=== PATIENT | male | born 1955 | race Caucasian/White ===

== ENCOUNTER 2017-10-10 08:13 | Emergency (ER) | payer MEDICAID ==
[~2017-10-10] VITALS: Ht 180.3 cm; Wt 82.5 kg
[2017-10-10 08:17] VITALS: BP 139/102
[2017-10-10] MEDS ORDERED: CARB15DR91 EACH EAR (09:15)
== END 2017-10-10 09:25 | disposition home or self-care (01) ==
LOC: ER 08:14
DX: H61.22 Impacted cerumen, left ear (principal); G43.909 Migraine, unspecified, not intractable, without status migrainosus; F11.10 Opioid abuse, uncomplicated
CPT/HCPCS: 69210; 99284

== ENCOUNTER 2019-05-26 16:14 | Emergency (ER) | payer MEDICAID ==
[~2019-05-26] VITALS: Ht 180.3 cm; Wt 75.0 kg
[~2019-05-26 16:14] MED LIST: CARB15DR91 EACH EAR
[2019-05-26] MEDS ORDERED: aspirin 81mg tab.chew PO ONE (16:55)
[2019-05-26 17:36] LABS: BASOPHILS # (AUTO) 0.1 X10'3 (0-0.2); BASOPHILS % (AUTO) 1.1 % (0-1); EOSINOPHILS # (AUTO) 0.1 X10'3 (0-0.9); EOSINOPHILS % (AUTO) 1.2 % (0-6); HEMATOCRIT 41.2 % (42.0-52.0); HEMOGLOBIN 14.2 g/dl (14.0-17.9); LYMPHOCYTES # (AUTO) 2.1 X10'3 (1.1-4.8); MEAN CORPUSCULAR HGB CONC 34.5 g/dL (33.0-36.5); MEAN CORPUSCULAR VOLUME 95.5 FL (78-98); MEAN PLATELET VOLUME 8.5 FL (7.4-10.4); MONOCYTES # (AUTO) 0.7 X10'3 (0-0.9); MONOCYTES % (AUTO) 12.1 % (2-12); NEUTROPHILS # (AUTO) 2.9 X10'3 (1.8-7.7); NEUTROPHILS % (AUTO) 49.6 % (42-75); PLATELET COUNT 147 X10'3 (140-440); RED BLOOD COUNT 4.32 X10'6 (4.70-6.10); RED CELL DISTRIBUTION WIDTH 14.2 % (11.5-14.5); WHITE BLOOD COUNT 5.8 X10'3 (4.5-11.0)
[2019-05-26 17:48] LABS: PARTIAL THROMBOPLASTIN TIME 27 SECONDS (22-32)
[2019-05-26 17:57] LABS: ALANINE AMINOTRANSFERASE 180 U/L (12-78); ALBUMIN 3.6 G/DL (3.4-5.0); ALBUMIN/GLOBULIN RATIO 0.9 (1.1-1.5); ALKALINE PHOSPHATASE 114 IU/L (46-116); ANION GAP 11 (8-16); ASPARTATE AMINO TRANSFERASE 191 U/L (10-37); BILIRUBIN,TOTAL 1.1 MG/DL (0.1-1.0); BLOOD UREA NITROGEN 9 MG/DL (7-18); BUN/CREATININE RATIO 11.8 (5.4-32.0); CALCIUM 8.7 MG/DL (8.5-10.1); CHLORIDE 107 MMOL/L (99-107); CREATININE 0.76 MG/DL (0.60-1.10); GLUCOSE 103 MG/DL (70-104); POTASSIUM 3.9 MMOL/L (3.5-5.1); SODIUM 141 MMOL/L (135-145); TOTAL CARBON DIOXIDE 22.7 MMOL/L (24-32); TOTAL PROTEIN 7.8 G/DL (6.4-8.2); eGFR > 90 ML/MIN
[2019-05-26 17:58] LABS: LACTIC SEPSIS 1.2 MMOL/L (0.4-2.0)
[2019-05-26 18:01] LABS: CLARITY,URINE CLEAR (Clear); COLOR,URINE YELLOW (Yellow); GLUCOSE, URINE NEGATIVE (Neg); KETONES,URINE 15 mg/dl (Neg); LEUKOCYTE ESTERASE ,URINE TRACE (Neg); NITRITES, URINE NEGATIVE (Neg); OCCULT BLOOD,URINE NEGATIVE (Neg); PH,URINE 5.5 (4.8-8.0); PROTEIN,URINE NEGATIVE (Neg); UROBILINOGEN,URINE 0.2 E.U/dL (0.2-1.0)
[2019-05-26 18:02] LABS: AMMONIA < 10 UMOL/L (11-32)
[2019-05-26 18:02] LABS: UA COLLECTION TYPE CLN CATCH MIDSTREAM
[2019-05-26 18:06] LABS: MUCUS STRANDS MODERATE /LPF (Neg); SQUAMOUS EPITHELIAL CELL,UR MODERATE /LPF (FEW)
[2019-05-26 18:07] LABS: BACTERIA,URINE FEW /HPF (Neg); RBC,URINE 0-2 /HPF (0-2); WBC CLUMPS,URINE FEW /HPF (NEGATIVE)
[2019-05-26 18:11] LABS: MAGNESIUM 1.8 MG/DL (1.5-2.4)
[2019-05-26 20:57] VITALS: BP 118/87
== END 2019-05-26 20:58 | disposition home or self-care (01) ==
LOC: ER 16:14
DX: K70.30 Alcoholic cirrhosis of liver without ascites (principal); F11.90 Opioid use, unspecified, uncomplicated; Z98.890 Other specified postprocedural states; Z79.899 Other long term (current) drug therapy
CPT/HCPCS: 36415; 71045; 74176; 80053; 81001; 82140; 83605; 83735; 83880; 84439; 84443; 84484; 85025; 85610; 85730; 87088; 93005; 99284

== ENCOUNTER 2021-03-25 13:24 | Emergency (ER) | payer MEDICAID ==
[~2021-03-25] VITALS: Ht 177.8 cm; Wt 77.3 kg
[2021-03-25 15:53] LABS: BASOPHILS # (AUTO) 0.1 X10'3 (0-0.2); BASOPHILS % (AUTO) 1.5 % (0-1); EOSINOPHILS # (AUTO) 0.1 X10'3 (0-0.9); EOSINOPHILS % (AUTO) 1.1 % (0-6); HEMATOCRIT 44.5 % (42.0-52.0); HEMOGLOBIN 15.3 g/dl (14.0-17.9); LYMPHOCYTES # (AUTO) 2.7 X10'3 (1.1-4.8); LYMPHOCYTES % (AUTO) 46.8 % (21-51); MEAN CORPUSCULAR HEMOGLOBIN 32.3 PG (27.0-31.0); MEAN CORPUSCULAR HGB CONC 34.3 g/dL (33.0-36.5); MEAN CORPUSCULAR VOLUME 94.2 FL (78-98); MEAN PLATELET VOLUME 8.1 FL (7.4-10.4); MONOCYTES # (AUTO) 0.4 X10'3 (0-0.9); MONOCYTES % (AUTO) 7.7 % (2-12); NEUTROPHILS # (AUTO) 2.4 X10'3 (1.8-7.7); NEUTROPHILS % (AUTO) 42.9 % (42-75); PLATELET COUNT 205 X10'3 (140-440); RED BLOOD COUNT 4.72 X10'6 (4.70-6.10); RED CELL DISTRIBUTION WIDTH 13.6 % (11.5-14.5); WHITE BLOOD COUNT 5.7 X10'3 (4.5-11.0)
[2021-03-25 16:15] LABS: ALANINE AMINOTRANSFERASE 37 U/L (12-78); ALBUMIN 3.8 G/DL (3.4-5.0); ALBUMIN/GLOBULIN RATIO 1.1 (1.1-1.5); ALKALINE PHOSPHATASE 90 IU/L (46-116); ANION GAP 18 (8-16); ASPARTATE AMINO TRANSFERASE 46 U/L (10-37); BILIRUBIN,TOTAL 0.6 MG/DL (0.1-1.0); BLOOD UREA NITROGEN 6 MG/DL (7-18); BUN/CREATININE RATIO 6.9 (5.4-32.0); CALCIUM 8.6 MG/DL (8.5-10.1); CHLORIDE 105 MMOL/L (99-107); CREATININE 0.87 MG/DL (0.60-1.10); GLUCOSE 113 MG/DL (70-104); LIPASE 564 U/L (73-393); POTASSIUM 3.6 MMOL/L (3.5-5.1); SODIUM 142 MMOL/L (135-145); TOTAL CARBON DIOXIDE 19.1 MMOL/L (24-32); TOTAL PROTEIN 7.3 G/DL (6.4-8.2); eGFR 89 ML/MIN
[2021-03-25] MEDS ORDERED: LORazepam 1 MG tablet PO ONE (17:20)
[2021-03-25 17:43] LABS: ETHANOL 0.188 GM/DL (0.0-0.010)
[2021-03-25 19:28] LABS: URINE AMPHETAMINE SCREEN POSITIVE (Neg); URINE BARBITUATE SCREEN NEGATIVE (Neg); URINE BENZODIAZEPINES SCREEN NEGATIVE (Neg); URINE CANNABINOID SCREEN POSITIVE (Neg); URINE COCAINE SCREEN NEGATIVE (Neg); URINE METHADONE SCREEN NEGATIVE (Neg); URINE OPIATE SCREEN NEGATIVE (Neg); URINE PHENCYCLIDINE SCREEN NEGATIVE (Neg)
[2021-03-25 19:29] LABS: CLARITY,URINE CLEAR (Clear); COLOR,URINE YELLOW (Yellow); GLUCOSE, URINE NEGATIVE (Neg); KETONES,URINE TRACE mg/dl (Neg); LEUKOCYTE ESTERASE ,URINE NEGATIVE (Neg); NITRITES, URINE NEGATIVE (Neg); OCCULT BLOOD,URINE NEGATIVE (Neg); PROTEIN,URINE NEGATIVE (Neg); UROBILINOGEN,URINE 0.2 E.U/dL (0.2-1.0)
[2021-03-25 19:44] LABS: UA COLLECTION TYPE CLN CATCH MIDSTREAM
[2021-03-26] MEDS ORDERED: NO HOME MEDS (00:12)
--- NOTE | 2021-03-26 06:46 | NUR ---
PT IS ASLEEP IN BED. OBSERVED PT BREATHING EVENLY AND WITHOUT DISTRESS.
--- NOTE | 2021-03-26 09:01 | NUR ---
observed pt sleeping. breathing is normal, equal, and without distress.
--- NOTE | 2021-03-26 13:40 | NUR ---
PT RESTING ON RIGHT SIDE RR EQUAL AND UNLABORED.
--- NOTE | 2021-03-26 19:00 | NUR ---
Received pt asleep in bed. Pt cooperative with accounts payable clerk and stated he felt safe here; though, continues to endorse thoughts of other out to kill him out of the hospital.
[2021-03-26] MEDS ORDERED: OLANZapine 2.5MG tablet PO SCH (19:35)
--- NOTE | 2021-03-26 20:14 | NUR ---
Dr. Harley contacted and gave order for zyprexa 10mg now and hs which was given. Pt cooperative.
[2021-03-26] MEDS: olanzapine 10mg tablet PO SCH (21:00)
--- NOTE | 2021-03-26 21:00 | NUR ---
Pt lying in bed watching movie on the television. Pt calm and cooperative.
--- NOTE | 2021-03-26 23:00 | NUR ---
Pt fell asleep around 2150. Pt currently sleeping without signs of distress.
--- NOTE | 2021-03-27 01:00 | NUR ---
Pt remains sleeping in no apparent distress.
--- NOTE | 2021-03-27 03:00 | NUR ---
Pt remains sleeping in no apparent distress.
--- NOTE | 2021-03-27 05:00 | NUR ---
Pt remained asleep without signs of distress.
--- NOTE | 2021-03-27 07:00 | NUR ---
pt is sleeping
--- NOTE | 2021-03-27 08:00 | NUR ---
pt is sleeping
--- NOTE | 2021-03-27 09:00 | NUR ---
pt is eating breakfast
--- NOTE | 2021-03-27 10:10 | NUR ---
pt ambulated to the bathroom
--- NOTE | 2021-03-27 11:00 | NUR ---
pt is sleeping
--- NOTE | 2021-03-27 12:00 | NUR ---
pt is sleeping
--- NOTE | 2021-03-27 13:19 | NUR ---
pt is sleeping
--- NOTE | 2021-03-27 14:00 | NUR ---
pt stood up by his bed for awhile. no concerns at this time. pt returned to bed
--- NOTE | 2021-03-27 15:00 | NUR ---
pt is sleeping
--- NOTE | 2021-03-27 16:42 | NUR ---
pt is sleeping
--- NOTE | 2021-03-27 17:43 | NUR ---
pt is resting.
--- NOTE | 2021-03-27 18:10 | NUR ---
Report to [facility]
--- NOTE | 2021-03-27 19:25 | NUR ---
The patient was updated on the plan of care and he is aware that he will be transferred to [facility] [place] this evening pending transport by [facility]. He had a covid screen.
--- NOTE | 2021-03-27 19:26 | NUR ---
The patient was accepted to [facility] at 1819 by Pieter Mancera NP. Pickup time at 2044
[2021-03-27] MEDS: olanzapine 10mg tablet PO SCH (20:09)
[2021-03-27 20:44] VITALS: BP 110/73
== END 2021-03-27 20:48 ==
LOC: ER 13:25
DX: F23 Brief psychotic disorder (principal); Z20.822 Contact with and (suspected) exposure to COVID-19; F10.129 Alcohol abuse with intoxication, unspecified; F11.90 Opioid use, unspecified, uncomplicated; Z79.899 Other long term (current) drug therapy; Z72.89 Other problems related to lifestyle; F60.0 Paranoid personality disorder; Y90.6 Blood alcohol level of 120-199 mg/100 ml
CPT/HCPCS: 36415; 80053; 80305; 80320; 81003; 83690; 84443; 85025; 87635; 99285; C9803

== ENCOUNTER 2022-10-17 11:05 | Emergency (ER) | payer MEDICAID ==
[~2022-10-17] VITALS: Ht 179.1 cm; Wt 81.8 kg
[~2022-10-17 11:05] MED LIST changes: -CARB15DR91 EACH EAR; +NO HOME MEDS
[2022-10-17 11:15] VITALS: BP 133/99
[2022-10-17] MEDS ORDERED: CEPH250T PO (11:22)
[2022-10-17] MEDS ORDERED: TRAM50TA2 PO (11:22)
== END 2022-10-17 11:53 | disposition home or self-care (01) ==
LOC: ER 11:05
DX: S61.214A Laceration without foreign body of right ring finger without damage to nail, initial encounter (principal); S61.216A Laceration without foreign body of right little finger without damage to nail, initial encounter; L03.011 Cellulitis of right finger; F17.200 Nicotine dependence, unspecified, uncomplicated; Z72.89 Other problems related to lifestyle; Z98.890 Other specified postprocedural states; Z79.899 Other long term (current) drug therapy; W26.0XXA Contact with knife, initial encounter; Y93.89 Activity, other specified; Y92.89 Other specified places as the place of occurrence of the external cause; Y99.8 Other external cause status
CPT/HCPCS: 99283

== ENCOUNTER 2023-11-25 17:59 | Emergency (ER) | payer MEDICARE, MEDICAID ==
[~2023-11-25] VITALS: Ht 177.8 cm; Wt 79.8 kg
[2023-11-25] MEDS ORDERED: methylPREDNISolone acetate 80mg/ml inj**IM only IM ONE (18:55)
[2023-11-25] MEDS: LIDOcaine 1% (10mg/ml) 2ml vial SQ ONE (19:32)
[2023-11-25] MEDS: methylPREDNISolone acetate 80mg/ml inj**IM only IM ONE (19:32)
[2023-11-25] MEDS ORDERED: MELO-102 PO (19:48)
[2023-11-25 20:01] VITALS: BP 144/86; PULSE 88; RESP 15; TEMP 98.7; O2SAT 98
== END 2023-11-25 20:02 | disposition home or self-care (01) ==
LOC: ER 18:00
DX: M17.11 Unilateral primary osteoarthritis, right knee (principal); M25.461 Effusion, right knee
CPT/HCPCS: 20552; 73564; 99284

== ENCOUNTER 2024-03-26 06:57 | Emergency (ER) | payer MEDICARE, MEDICAID ==
[~2024-03-26] VITALS: Ht 177.8 cm; Wt 71.8 kg
[~2024-03-26 06:57] MED LIST changes: +MELO-102 PO
[2024-03-26 13:42] VITALS: TEMP 98
[2024-03-26] MEDS ORDERED: IBUP-1984 PO (14:30)
[2024-03-26] MEDS: ibuprofen tablet 400 MG TABLET PO ONE (15:51)
[2024-03-26 16:24] VITALS: BP 121/68; PULSE 82; RESP 16; O2SAT 99
== END 2024-03-26 16:27 | disposition home or self-care (01) ==
LOC: ER 06:57
DX: S00.91XA Abrasion of unspecified part of head, initial encounter (principal); R51.9 Headache, unspecified; Z79.1 Long term (current) use of non-steroidal anti-inflammatories (NSAID); Z79.2 Long term (current) use of antibiotics; W19.XXXA Unspecified fall, initial encounter; Y93.89 Activity, other specified; Y92.89 Other specified places as the place of occurrence of the external cause; Y99.8 Other external cause status
CPT/HCPCS: 99285

== ENCOUNTER 2024-06-29 22:23 | Emergency (ER) | payer MEDICARE, MEDICAID ==
[~2024-06-29] VITALS: Ht 180.3 cm; Wt 79.5 kg
[2024-06-29 23:20] LABS: BASOPHILS % (AUTO) 0.7 % (0-1); EOSINOPHILS # (AUTO) 0.1 X10'3 (0-0.9); EOSINOPHILS % (AUTO) 1.4 % (0-6); HEMATOCRIT 37.8 % (42.0-52.0); HEMOGLOBIN 12.6 g/dl (14.0-17.9); LYMPHOCYTES # (AUTO) 1.4 X10'3 (1.1-4.8); LYMPHOCYTES % (AUTO) 21.8 % (21-51); MEAN CORPUSCULAR HGB CONC 33.4 g/dL (33.0-36.5); MEAN CORPUSCULAR VOLUME 95.9 FL (78-98); MEAN PLATELET VOLUME 7.7 FL (7.4-10.4); MONOCYTES # (AUTO) 0.8 X10'3 (0-0.9); MONOCYTES % (AUTO) 11.7 % (2-12); NEUTROPHILS # (AUTO) 4.2 X10'3 (1.8-7.7); NEUTROPHILS % (AUTO) 64.4 % (42-75); PLATELET COUNT 178 X10'3 (140-440); RED BLOOD COUNT 3.94 X10'6 (4.70-6.10); RED CELL DISTRIBUTION WIDTH 14.5 % (11.5-14.5); WHITE BLOOD COUNT 6.5 X10'3 (4.5-11.0)
[2024-06-29 23:37] LABS: ALANINE AMINOTRANSFERASE 22 U/L (12-78); ALBUMIN/GLOBULIN RATIO 1.3 (1.1-1.5); ALKALINE PHOSPHATASE 70 IU/L (46-116); ANION GAP 14 (8-16); ASPARTATE AMINO TRANSFERASE 25 U/L (10-37); BILIRUBIN,TOTAL 0.9 MG/DL (0.1-1.0); BLOOD UREA NITROGEN 7 MG/DL (7-18); BUN/CREATININE RATIO 6.8 (10.0-20.0); CHLORIDE 100 MMOL/L (99-107); CREATININE 1.03 MG/DL (0.60-1.10); GLUCOSE 98 MG/DL (70-104); POTASSIUM 3.3 MMOL/L (3.5-5.1); SODIUM 134 MMOL/L (135-145); TOTAL CARBON DIOXIDE 19.8 MMOL/L (24-32); TOTAL PROTEIN 7.2 G/DL (6.4-8.2); eCRCL 75 ML/MIN; eGFR 72 ML/MIN
[2024-06-29 23:43] LABS: BILIRUBIN,URINE NEGATIVE (Neg); CLARITY,URINE CLEAR (Clear); COLOR,URINE STRAW (Yellow); GLUCOSE, URINE NEGATIVE (Neg); KETONES,URINE NEGATIVE (Neg); LEUKOCYTE ESTERASE ,URINE NEGATIVE (Neg); NITRITES, URINE NEGATIVE (Neg); OCCULT BLOOD,URINE NEGATIVE (Neg); PROTEIN,URINE NEGATIVE (Neg); UROBILINOGEN,URINE 0.2 E.U/dL (0.2-1.0)
[2024-06-29 23:45] LABS: PRO BRAIN NATRIURETIC PEPTIDE 252 PG/ML (0-125)
[2024-06-30] LABS: UA COLLECTION TYPE VOIDED
[2024-06-30 00:01] LABS: URINE AMPHETAMINE SCREEN POSITIVE (Neg); URINE BARBITUATE SCREEN NEGATIVE (Neg); URINE BENZODIAZEPINES SCREEN NEGATIVE (Neg); URINE CANNABINOID SCREEN POSITIVE (Neg); URINE COCAINE SCREEN NEGATIVE (Neg); URINE METHADONE SCREEN NEGATIVE (Neg); URINE OPIATE SCREEN NEGATIVE (Neg); URINE PHENCYCLIDINE SCREEN NEGATIVE (Neg)
[2024-06-30 01:06] VITALS: BP 146/111; PULSE 83; RESP 16; TEMP 98.6; O2SAT 99
== END 2024-06-30 01:25 | disposition home or self-care (01) ==
LOC: ER 22:23
DX: F15.10 Other stimulant abuse, uncomplicated (principal); R07.89 Other chest pain; F41.9 Anxiety disorder, unspecified; I49.3 Ventricular premature depolarization; Z79.2 Long term (current) use of antibiotics
CPT/HCPCS: 71045; 80053; 80305; 81003; 83880; 84484; 85025; 93005; 99285

== ENCOUNTER 2024-07-17 08:35 | Emergency (ER) | payer MEDICARE, MEDICAID ==
[~2024-07-17] VITALS: Ht 177.8 cm; Wt 75.0 kg
[2024-07-17 08:37] VITALS: BP 118/71; PULSE 78; RESP 16; TEMP 96.2; O2SAT 99
[2024-07-17] MEDS ORDERED: ACET-1008 PO (10:12)
[2024-07-17] MEDS ORDERED: ITRA100C3 PO (10:12)
[2024-07-17] MEDS ORDERED: CEPH250T PO (10:12)
== END 2024-07-17 10:32 | disposition home or self-care (01) ==
LOC: ER 08:36
DX: S60.922A Unspecified superficial injury of left hand, initial encounter (principal); Z79.1 Long term (current) use of non-steroidal anti-inflammatories (NSAID); Z79.2 Long term (current) use of antibiotics; Z79.899 Other long term (current) drug therapy; W60.XXXA Contact with nonvenomous plant thorns and spines and sharp leaves, initial encounter; Y93.89 Activity, other specified; Y92.89 Other specified places as the place of occurrence of the external cause; Y99.8 Other external cause status
CPT/HCPCS: 99283